=== PATIENT | female | born 1950 | race Caucasian/White ===

== ENCOUNTER → 2018-12-25 | Day surgery (SDC) | payer OTHER ==
[~2018-12-25] MED LIST: ACETAMINOPHEN325 M1 PO; ACIPHEX20 MG PO; ADVIL PM CAPLE1 EACH PO; ALBUTEROL0.63 MG/3 INH; BACTROBAN15 GM TOP; BENAZEP PO; BREO ELLIPTA INH; BROVANA15 MCG/2 M INH; CEFTRIAXONE SOD 1 GM/NS 50 ML 50 ML IV ONE; CETIRIZINE HCL10 MG PO; CYCLOBENZAPRINE5 MG PO; DETROL LA4 MG PO; DICYCLOMINE HCL10 MG PO; DITROPAN XL5 MG PO; DULERA 100 MCG/13 GM INH; EFFEXOR XR 3737.5 MG PO; FERROUS SULFAT325 MG PO; FLUTICASONE PRO16 GM INH; HCTZ PO; INCRUSE INH; IOPAMIDOL 300 MG/ML 15ML VIAL IT ONE; IOPAMIDOL 300MG/ML 50ML INFUS..BTL IV ONE; IPRATROPIU0.2 MG/1 M NEB; KEFLEX500 MG PO; LIDOCAINE HCL 2% LOCAL INJ 5 ML SDV VIAL INJ ONE; LIPITOR20 MG PO; MYRBETRIQ50 MG PO; NICOTINE PATCH1 EAC1 TOP; OMEPRAZOLE40 MG PO; ONDANSETRON HCL INJ 2MG/ML 2ML 2 MG/ML VIAL ONE; PANTOPRAZOLE SO40 MG PO; PEPCID20 MG PO; PROPOFOL IV EMULSION 10 MG/ML 20 ML VIAL ONE; PROVENTIL HFA6.7 GM INH; RITALIN10 MG PO; SEVOFLURANE INHAL SOLN 250 ML PEN BTL ONE; SINGULAIR10 MG PO; STOOL SOFTENER100 M1 PO; SYMBICORT 16010.2 GM INH; TRAZODONE HCL50 MG PO; TYLENOL PM PO; VITAMIN C500 MG PO; VITAMIN D1000 UNI1 PO; VOLTAREN100 GM TOP; WAL-TUSSIN15 MG/5 ML PO
[2018-12-25 08:54] LABS: BASOPHILS # (AUTO) 0.1 (0.0-0.1); BASOPHILS % 0.8 % (0.0-1.0); EOSINOPHILS # (AUTO) 0.1 (0.0-0.4); EOSINOPHILS % 1.4 % (0.0-6.0); HEMATOCRIT 40.1 % (34.2-44.1); HEMOGLOBIN 13.7 g/dL (12.0-16.0); LYMPHOCYTES # (AUTO) 2.1 (1.0-3.2); LYMPHOCYTES % 27.4 % (18.0-39.1); MEAN CORPUSCULAR HEMOGLOBIN 30.1 pg (28-32); MEAN CORPUSCULAR HGB CONC 34.2 g/dL (31-35); MEAN CORPUSCULAR VOLUME 88.1 fL (81-99); MONOCYTES # (AUTO) 0.4 (0.2-0.8); MONOCYTES % 5.3 % (4.4-11.3); NEUTROPHILS % 64.8 % (38.7-80.0); PLATELET COUNT 221 x10e3/uL (140-360); RED BLOOD COUNT 4.55 x10e6/uL (3.6-5.1); RED CELL DISTRIBUTION WIDTH 14.4 % (11.7-14.4)
[2018-12-25 09:09] LABS: ANION GAP 12.4 mmol/L (8-16); BLOOD UREA NITROGEN 10 mg/dL (7-26); BUN/CREATININE RATIO 12 (6-25); CALCIUM 9.9 mg/dL (8.4-10.2); CARBON DIOXIDE 29 mmol/L (22-29); CHLORIDE 100 mmol/L (98-107); CREATININE, SERUM 0.82 mg/dL (0.57-1.11); EST GLOMERULAR FILTRATION RATE > 60 ML/MIN (60-); GLUCOSE 123 mg/dL (74-118); POTASSIUM 3.4 mmol/L (3.5-5.1); SODIUM 138 mmol/L (136-145)
[2018-12-25 10:20] VITALS: BP 131/68
--- NOTE | 2018-12-26 00:44 | Operative Report ---
DATE OF PROCEDURE: 12/25/2018 SURGEON: Raymond Culp MD PREOPERATIVE DIAGNOSES: 1. Multiple chronic urinary tract infections. 2. Clinical signs and symptoms of interstitial cystitis. POSTOPERATIVE DIAGNOSES: 1. Multiple chronic urinary tract infections. 2. Clinical signs and symptoms of interstitial cystitis. 3. Vaginal atrophy. PROCEDURES: 1. Cystourethroscopy with hydrodistention (entirely separate procedure for clinical signs and symptoms of interstitial cystitis). 2. Cystourethroscopy with left ureteral catheterization and left retrograde pyelogram (entirely separate procedure for urinary tract infections). 3. Cystourethroscopy, right catheterization and right retrograde pyelogram (separate procedure for multiple chronic urinary tract infections). 4. Supervision of fluoroscopy. 5. Interpretation of retrograde pyelography. ANESTHESIA: General. ESTIMATED BLOOD LOSS: Minimal. COMPLICATIONS: None. INDICATIONS FOR PROCEDURE: Ms. Caballero is a 68-year-old female with a history of multiple chronic urinary tract infections. She and I had a long discussion about alternatives, risks, and benefits of doing nothing, cystoscopy, IVP, retrograde pyelogram with ultrasound. She voiced understanding of the options, alternatives, risks, and benefits and elected to proceed with cystoscopy, hydrodistention, retrograde pyelogram in order to avoid nephrotoxic risk of dye. PROCEDURE IN DETAIL: After informed consent was obtained, the patient was taken to operative suite, placed supine on the operating table, underwent general anesthesia by the Anesthesia Service. She was placed in the dorsal lithotomy position, sterilely prepped and draped in standard fashion for cystoscopy. A 21-Urdu cystoscope was inserted per urethra. The vaginal atrophy was noted. Panendoscopy of the bladder, no tumors and no stones. Both ureteral orifices were normal. Both ureteral orifices were in normal anatomic location and position and were seen to efflux clear urine. Hydrodistention was performed, revealed a capacity of 800 mL, no glomerulations, no Hunner's ulcers. Bilateral retrograde pyelograms were performed, which were normal. The bladder was drained. The patient was awakened from anesthesia and transported to the recovery room in excellent condition. Supervision of fluoroscopy and interpretation of retrograde pyelography: I was present for the entire procedure and supervised fluoroscopy. There was no radiologist present. Bilateral retrograde problems revealed delicate ureters, delicate pelvocaliceal systems, no evidence of filling defects, no evidence of hydronephrosis. IMPRESSION: Normal retrograde pyelograms. MD LEDY Christianson/DIANNAL /[id number]
== END | disposition home or self-care (01) ==
LOC: OR 07:48
PROVIDERS: ATTEND Urology
DX: N39.0 Urinary tract infection, site not specified (principal); N95.2 Postmenopausal atrophic vaginitis; K21.9 Gastro-esophageal reflux disease without esophagitis; J44.9 Chronic obstructive pulmonary disease, unspecified; I10 Essential (primary) hypertension; F32.9 Major depressive disorder, single episode, unspecified; F41.9 Anxiety disorder, unspecified; F17.210 Nicotine dependence, cigarettes, uncomplicated; Z88.6 Allergy status to analgesic agent; Z88.8 Allergy status to other drugs, medicaments and biological substances
CPT/HCPCS: 36415; 52005; 74420; 80048; 85025; 93005; J0696; J2001; J2405; J2704; Q9967